=== PATIENT | male | born 2000 | race African-American/Black ===

== ENCOUNTER 2022-04-28 09:33 | Emergency (ER) | payer SELFPAY ==
[~2022-04-28] VITALS: Ht 162.6 cm; Wt 117.9 kg
--- NOTE | 2022-04-28 09:39 | NUR ---
PT AMBULATED TO BED 8
[2022-04-28 09:40] VITALS: BP 145/77
--- NOTE | 2022-04-28 09:40 | NUR ---
21YO MALE PT C/O GENITAL SWELLING [id number]. PRESENTS WITH MILD SWELLING AT PENILE TIP W/ WHITE CRUST NOTED. CAP REFILL <3 THROUGHOUT. PT SEXUALLY ACTIVE AND NOTES UNPROTECTED SEX ABOUT THE TIME OF INTIAL SYMPTOMS . DENIES DYSURIA, DRAINAGE, N/V/D, FEVER OR CHILLS. PT AAOX4, NO VISIBLE DISTRESS. HX:DENIES NKA
--- NOTE | 2022-04-28 09:45 | NUR ---
21 y/o male bib self, pt states he has been having inflammtion and white discharge on his penis, denies swelling to testicles or pain in area. pt states pain started 3 weeks ago after having unprotected sex. denies rash, n/v/d, dysuria, hematuria. a&ox4, ambulates with steady gait. ermd made aware. pmh: denies nka med: denies
--- NOTE | 2022-04-28 09:48 | NUR ---
MD GARG AT BEDSIDE FOR EVALUATION
[2022-04-28 10:03] LABS: APPEARANCE,URINE CLEAR (CLEAR); BILIRUBIN,URINE NEGATIVE (NEGATIVE); BLOOD, URINE NEGATIVE (NEGATIVE); COLOR,URINE YELLOW (YELLOW); LEUKOCYTE ESTERASE ,URINE NEGATIVE (NEGATIVE); NITRITE, URINE NEGATIVE (NEGATIVE); UGLUCOSE 3+ (NEGATIVE)
[2022-04-28 10:36] LABS: RBC,URINE NONE SEEN /HPF (0-5); YEAST,URINE Few /HPF (None Seen)
[2022-04-28] MEDS ORDERED: FLUCONAZOLE 100 MG TAB PO ONE (11:05)
[2022-04-28] MEDS ORDERED: LOTC TP (11:09)
--- NOTE | 2022-04-28 11:16 | NUR ---
Patient discharged with v/s stable. Written and verbal after care instructions FOR GENITAL YEAST INFECTION given and explained. Patient alert, oriented and verbalized understanding of instructions. Ambulatory with steady gait. All questions addressed prior to discharge. ID band removed. Patient advised to follow up with PMD. Rx of LOTRIMIN 1% given. Opportunity to ask questions provided and answered.
--- NOTE | 2022-04-28 11:20 | NUR ---
The patient's care was reviewed and supervised by [facility], RN.
== END 2022-04-28 11:16 | disposition home or self-care (01) ==
LOC: MED 09:33
DX: N47.6 Balanoposthitis (principal)
CPT/HCPCS: 81001; 87086; 87491; 99283